=== PATIENT | male | born 1990 | race Caucasian/White ===

== ENCOUNTER 2022-05-27 15:55 | Emergency (ER) | payer OTHER ==
[~2022-05-27] VITALS: Ht 175.3 cm; Wt 83.9 kg
[2022-05-27 16:02] VITALS: BP 148/126
--- NOTE | 2022-05-27 16:11 | NUR ---
PT AMB TO BED 11.
--- NOTE | 2022-05-27 16:44 | NUR ---
HER FOR CHEST PAIN,BIZARRE BEHAVIOR NOTED, OCCASSIONAL LAUGHS AT HIMSELF, TALKING TO HIMSELF, NOT RESPONDING TO QUESTIONS, NSR ON CM, O2 SAT 99% RA , SR UP TIMES 2
[2022-05-27 16:48] LABS: BASOPHILS % (AUTO) 0.4 % (0.0-2.0); EOSINOPHILS # (AUTO) 0.3 K/uL (0-0.4); EOSINOPHILS % (AUTO) 5.9 % (0.0-4.0); HEMATOCRIT 43.1 % (36-52); HEMOGLOBIN 14.7 g/dL (12.0-18.0); LYMPHOCYTES # (AUTO) 2.2 K/uL (2.0-11.5); LYMPHOCYTES % (AUTO) 39.1 % (20.5-51.1); MEAN CORPUSCULAR HEMOGLOBIN 29 pg (27-31); MEAN CORPUSCULAR HGB CONC 34 g/dL (33-37); MONOCYTES # (AUTO) 0.6 K/uL (0.8-1.0); MONOCYTES % (AUTO) 11.4 % (1.7-9.3); NEUTROPHILS # (AUTO) 2.5 K/uL (1.8-7.7); NEUTROPHILS % (AUTO) 43.2 % (42.2-75.2); PLATELET COUNT (AUTO) 252 K/uL (140-450); RED BLOOD CELL COUNT(AUTO) 5.01 MIL/uL (4.20-6.10); RED CELL DISTRIBUTION WIDTH 13.4 % (11.6-13.7); WHITE BLOOD COUNT (AUTO) 5.7 K/uL (4.8-10.8)
[2022-05-27 17:58] LABS: APPEARANCE,URINE CLEAR (CLEAR); BILIRUBIN,URINE NEGATIVE (NEGATIVE); BLOOD, URINE NEGATIVE (NEGATIVE); COLOR,URINE YELLOW (YELLOW); LEUKOCYTE ESTERASE ,URINE NEGATIVE (NEGATIVE); NITRITE, URINE NEGATIVE (NEGATIVE); UGLUCOSE NEGATIVE (NEGATIVE)
--- NOTE | 2022-05-27 18:10 | NUR ---
pt ambulated to restroom, no ac distress, talking to himself, denies any suicidal thoughts, calm and cooperative.
[2022-05-27 18:30] VITALS: BP 130/78
--- NOTE | 2022-05-27 18:42 | NUR ---
pt discharged home, offered transportation, states he does not need it, did not respond when asked how he was going to get home, calm and cooperative, suggested to f up w pmd in 2-3 days, pt denies any further questions.
[2022-05-27 18:58] LABS: ALBUMIN 4.3 g/dL (3.4-5.0); ANION GAP 12.7 (8-16); ASPARTATE AMINOTRANSFERASE 42 U/L (15-37); CARBON DIOXIDE 26.4 mmol/L (21-32); CHLORIDE 101 mmol/L (98-107); CREATININE 1.2 mg/dL (0.6-1.3); GFR ARICAN-AMERICAN 91 mL/min (>90); GLUCOSE 93 mg/dL (74-106); POTASSIUM 4.1 mmol/L (3.5-5.1); SODIUM SERUM 136 mmol/L (136-145); TOTAL BILIRUBIN 1.7 mg/dL (0.0-1.0); UREA NITROGEN, BLOOD 21 mg/dL (7-18)
[2022-05-27 18:59] LABS: BARBITURATE, URINE NEGATIVE ng/ml (NEG <=200); BENZODIAZEPINE, URINE NEGATIVE ng/mL (NEG <=200); CANNABINOID, URINE NEGATIVE ng/mL (NEG <=50); COCAINE, URINE NEGATIVE ng/mL (NEG <=300); OPIATE, URINE NEGATIVE ng/mL (NEG <=2000); PHENCYCLIDINE SCREEN,URINE NEGATIVE ng/mL (NEG <=25)
[2022-05-27 19:12] LABS: SALICYLATE < 2.8 mg/dL (2.8-20.0)
[2022-05-27 19:58] LABS: ACETAMINOPHEN 95.7 ug/ml (10-30)
== END 2022-05-27 18:30 | disposition home or self-care (01) ==
LOC: MED 15:55
DX: R07.9 Chest pain, unspecified (principal); R06.02 Shortness of breath; R46.1 Bizarre personal appearance
CPT/HCPCS: 36415; 70450; 71045; 80053; 80305; 81003; 85025; 93005; 99285; G0480; G0482